=== PATIENT | male | born 1960 | race Caucasian/White ===

== ENCOUNTER 2023-09-07 08:35 | Outpatient (CLI) | payer MEDICARE, BC, SELFPAY | END 2023-09-07 08:36 | disposition home or self-care (01) | LOC: NFLDREF 09-10 07:43 | PROVIDERS: PCP Internal Medicine; Referring Provider Internal Medicine; Visit Provider Internal Medicine | DX: E78.5 Hyperlipidemia, unspecified (principal); I10 Essential (primary) hypertension; L40.50 Arthropathic psoriasis, unspecified; C20 Malignant neoplasm of rectum; G47.00 Insomnia, unspecified; F41.9 Anxiety disorder, unspecified; Z12.5 Encounter for screening for malignant neoplasm of prostate | CPT/HCPCS: 80053; 80061; G0103 ==

== ENCOUNTER 2024-02-16 15:50 | Outpatient (CLI) | payer MEDICARE, BC, SELFPAY ==
--- OUTSIDE RECORDS SUMMARY | 2024-02-16 15:52 | XMS_ITS | Clinical Summary ---
Author Organization [facility] Address [address] [place] [address]. [place] [address] Care Team Providers Care Ice Skating Teacher Name Role Phone Martín Campbell MD Primary Care Provider Allergies No known active allergies Medications losartan (COZAAR) 100 MG tablet Take 50 mg by mouth daily (100MG X 0.5 = 50MG) Active Vitamin D, Cholecalcifero l, 25 MCG (1000 UT) CAPS Take 1,000 Units by mouth every morning Active zolpidem (AMBIEN) 10 MG tablet Take 10 mg by mouth every evening as needed for sleep Active gabapentin (NEURONTIN) 300 MG capsule Take 300 mg by mouth every morning Active LORazepam (ATIVAN) 0.5 MG tablet Take 0.5 mg by mouth 2 times daily as needed for anxiety Active acetaminophen (TYLENOL) 500 MG tablet Take 500 mg by mouth every morning Active Alum Hydroxide-Mag Carbonate (GAVISCON PO) Take 1 Tablespoonful by mouth daily as needed Active Active Problems Problem Noted Date Diagnosed Date Rectal cancer 02/13/2021 Family History Medical History Relation Comments Cancer Father Lung Cancer Father Colon Cancer Other Colon Cancer Paternal Grandfather Relation Status Comments Father Mother Other Paternal Grandfather Social History Tobacco Use Types Packs/Day Years Used Date Smoking Tobacco: Former Cigarettes Q uit: 2004 Smokeless Tobacco: Never Tobacco Cessation:Counseling Given: Not Answered Alcohol Use Standard Drinks/Week Comments Never 0 (1 standard drink = 0.6 oz pur e alcohol) AUDIT-C Answer Date Recorded Q1: How often do you have a drink containing alc ohol? Never 06/22/2020 Average Number of Drinks Not on file 021 Frequency of Binge Drinking Not on file 11/2020 Adolescent Education Answer Date Record ed Getting School Help Needed Not on file 12/06 Sex and Gender Information Value Date Recorded Sex Assigned at Not on file Legal Sex Male 7:14 AM CDT Gender Identity Not on file Sexual Orientation Not on file Last Filed Vital Signs Vital Sign Reading Time Taken Comments Blood Pressure 127/65 02/25/2022 8:30 AM UI SOFTWARE DEVELOPER Pulse 58 02/25/2022 8:10 AM UI SOFTWARE DEVELOPER Temperature 36.3 C (97.3 F) 02/25/2022 7:18 AM UI SOFTWARE DEVELOPER Respiratory Rate 16 02/25/2022 8:30 AM UI SOFTWARE DEVELOPER Oxygen Saturation 98% 02/25/2022 8:30 AM UI SOFTWARE DEVELOPER Inhaled Oxygen Concentration - - Weight 74.4 kg (164 lb) 02/25/2022 7:18 AM UI SOFTWARE DEVELOPER Height 167.6 cm (5' 6) 02/25/2022 7:18 AM UI SOFTWARE DEVELOPER Body Mass Index 26.47 02/25/2022 7:18 AM UI SOFTWARE DEVELOPER Plan of Treatment Health Maintenance Due Date Last Done Comments ANNUAL REVIEW OF HM ORDERS 1960 CT COLONOGRAPHY 1960 FIT 1960 sDNA (Cologuard) 1960 HIV SCREENING 1973 HEPATITIS C SCREENING 1976 LIPID 1998 LUNG CANCER SCREENING 2008 ZOSTER IMMUNIZATION (1 of 2) 2008 COLONOSCOPY 08/26/2022 02/25/2022, 02/25/2022 COLORECTAL CANCER SCREENING 08/26/2022 PHQ-2 (once per calendar year) 2023 FALL RISK ASSESSMENT 10/13/2023 MEDICARE ANNUAL WELLNESS VISIT 10/13/2023 Pneumococcal Vaccine: 65+ Years (1 of 1 - PCV) 10/13/2023 COVID-19 Vaccine (5 - season) 2023 02/03/2022, 12/15/2020, 06/15/2020, Additional history exists INFLUENZA VACCINE (#1) 2023 , 02/06/2021, 01/23/2021, Additional history exists GLUCOSE 06/05/2024 06/05/2021, 05/15, 06/02/2021, Additional history exists ADVANCE CARE PLANNING 02/27/2026 02/27/2021 FLEX SIG 09/10/2026 09/10/2021, 02/10/2021, 04/23/2021, Additional history exists DTAP/TDAP/TD IMMUNIZATION (2 - Td or Tdap) 02/06/2031 02/06/2021, 09/01/2005 RSV VACCINE (1 - 1-dose 75+ series) 2033 HPV IMMUNIZATION Aged Out No longer e ligible based on patient's age to complete this topic MENINGITIS IMMUNIZATION Aged Out No l onger eligible based on patient's age to complete this topic RSV MONOCLONAL ANTIBODY Aged Out No l onger eligible based on patient's age to complete this topic Medical Devices Explanted Type Area Patient Access Manager Device Identifier Shelf Expiration Date Model / Serial / Lot Port-06/26/2020 Implanted:Qty: 1 on 06/26/2020 by Bill Muro MD Explanted:Qty: 1 on 04/09/2021 by Austin Cuadra MD Port Right: Chest Wall 07/13/2021 / / [id number] Procedures Procedure Name Priority Date/Time Associated Diagnosis Comments COLONOSCOPY Routine 02/25/2022 7:20 AM UI SOFTWARE DEVELOPER FLEXIBLE SIGMOIDOSCOPY Routine 10:50 AM CDT GLUCOSE BY METER Routine 06/05/2021 1:53 AM CDT from Last 3 Months or Most Recently Relevant to Health Maintenance Results * COLONOSCOPY (02/25/2022 7:20 AM UI SOFTWARE DEVELOPER) COLONOSCOPY [facility] Patient Name: Husam Moran Procedure Date: 02/25/2022 7:20 AM Date of : 1960 Admit Type: Outpatient Age: 61 Gender: Male Attending MD: RAJAN FLORES MD Total Sedation Time: 15 min, IT 1 min, WT 14 min. Instrument Name: 224 - Adult Colonoscope Procedure: Colonoscopy Indications: High risk colon cancer surveillance: Personal history of rectal cancer - s/p robotic ultra low LAR 02/2021. Providers: RAJAN FLORES MD (Doctor) Referring MD: Medicines: Midazolam 3 mg IV, Fentanyl 100 micrograms IV Complications: No immediate complications. Procedure: Pre-Anesthesia Assessment: - Prior to the procedure, a History and Physical was performed, and patient medications and allergies were reviewed. The patient's tolerance of previous anesthesia was also reviewed. The risks and benefits of the procedure and the sedation options and risks were discussed with the patient. All questions were answered, and informed consent was obtained. Prior Anticoagulants: The patient has taken no anticoagulant or antiplatelet agents. ASA Grade Assessment: II - A patient with mild systemic disease. After reviewing the risks and benefits, the patient was deemed in satisfactory condition to undergo the procedure. - Prior to the procedure, a History and Physical was performed, and patient medications, allergies and sensitivities were reviewed. The patient's tolerance of previous anesthesia was reviewed. - The risks and benefits of the procedure and the sedation options and risks were discussed with the patient. All questions were answered and informed consent was obtained. - Patient identification and proposed procedure were verified prior to the procedure by the physician. The procedure was verified in the endoscopy suite. - Pre-procedure physical examination revealed no contraindications to sedation. - The heart rate, respiratory rate, oxygen saturations, blood pressure, adequacy of pulmonary ventilation, and response to care were monitored throughout the procedure. - The physical status of the patient was re-assessed after the procedure. After obtaining informed consent, the colonoscope was passed under direct vision. Throughout the procedure, the patient's blood pressure, pulse, and oxygen saturations were monitored continuously. The Olympus Adult Colonoscope, Model # CF-AX297C, Endora # 224, SN # [id number] was introduced through the anus and advanced to the terminal ileum. The colonoscopy was performed without difficulty. The patient tolerated the procedure well. The quality of the bowel preparation was adequate. Findings: A post-surgical anastomosis was found on digital exam. ~ 6 cm from the anal verge. This was found to be patent and intact. Pertinent negatives include normal sphincter tone, no palpable rectal lesions and normal prostate (size, shape, and consistency). The terminal ileum appeared normal. Two sessile polyps were found in the transverse colon and ascending colon. The polyps were 4 to 7 mm in size. These polyps were removed with a cold snare. Resection and retrieval were complete. Estimated blood loss was minimal. There was evidence of a prior end-to-end colo-rectal anastomosis in the rectum. This was patent and was characterized by healthy appearing mucosa and an intact staple line. The anastomosis was traversed. Biopsies were taken with a cold forceps for histology. Estimated blood loss was minimal. The exam was otherwise without abnormality. Impression: - Patent and intact post-surgical anastomosis found on digital exam. - The examined portion of the ileum was normal. - Two 4 to 7 mm polyps in the transverse colon and in the ascending colon, removed with a cold snare. Resected and retrieved. - Patent end-to-end colo-rectal anastomosis, characterized by healthy appearing mucosa and an intact staple line. Biopsied. - The examination was otherwise normal. Recommendation: - Discharge patient to home. - Resume previous diet. - Continue present medications. - Await pathology results. - Repeat colonoscopy in 3 years for surveillance. - Perform a flexible sigmoidoscopy for surveillance in 6 months. Procedure Code(s): --- Professional --- 27600, Colonoscopy, flexible; with removal of tumor(s), polyp(s), or other lesion(s) by snare technique 74673, 59, Colonoscopy, flexible; with biopsy, single or multiple CPT copyright 2020 [employer]. All rights reserved. The codes documented in this report are preliminary and upon spring coverer review may be revised to meet current compliance requirements. RAJAN FLORES MD 02/25/2022 7:56:55 AM I was physically present for the entire viewing portion of the exam. RAJAN FLORES MD Number of Addenda: 0 Note Initiated On: 02/25/2022 7:20 AM Procedure Date: 02/25/2022 7:20:55 AM Scope Withdrawal Time: 0 hours 13 minutes 52 seconds Total Procedure Duration: 0 hours 15 minutes 23 seconds Estimated Blood Loss: Scope In: 7:34:19 AM Scope Out: 7:49:42 AM RADIOLOGY RESULTS 02/25/2022 7:20 AM UI SOFTWARE DEVELOPER us Rajan Flores MD PROCEDURES Final Res ult RADIOLOGY RESULTS * FLEXIBLE SIGMOIDOSCOPY (09/10/2021 10:50 AM CDT) Pathologist [facility] Patient Name: Husam Moran Procedure Date: 09/10/2021 10:50 AM Date of : 1960 Admit Type: Outpatient Age: 60 Gender: Male Attending MD: Rajan Flores MD Total Sedation Time: 7 min. Instrument Name: 207- Gastroscope Procedure: Flexible Sigmoidoscopy Indications: High risk colon cancer surveillance: Personal history of rectal cancer Providers: Rajan Flores MD (Doctor) Referring MD: Medicines: Midazolam 2 mg IV, Fentanyl 100 micrograms IV Complications: No immediate complications. Procedure: Pre-Anesthesia Assessment: - Prior to the procedure, a History and Physical was performed, and patient medications and allergies were reviewed. The patient's tolerance of previous anesthesia was also reviewed. The risks and benefits of the procedure and the sedation options and risks were discussed with the patient. All questions were answered, and informed consent was obtained. Prior Anticoagulants: The patient has taken no anticoagulant or antiplatelet agents. ASA Grade Assessment: II - A patient with mild systemic disease. After reviewing the risks and benefits, the patient was deemed in satisfactory condition to undergo the procedure. - Prior to the procedure, a History and Physical was performed, and patient medications, allergies and sensitivities were reviewed. The patient's tolerance of previous anesthesia was reviewed. - The risks and benefits of the procedure and the sedation options and risks were discussed with the patient. All questions were answered and informed consent was obtained. - Patient identification and proposed procedure were verified prior to the procedure by the physician. The procedure was verified in the endoscopy suite. - Pre-procedure physical examination revealed no contraindications to sedation. - The heart rate, respiratory rate, oxygen saturations, blood pressure, adequacy of pulmonary ventilation, and response to care were monitored throughout the procedure. - The physical status of the patient was re-assessed after the procedure. After obtaining informed consent, the scope was passed under direct vision. The Olympus Gastroscope, Model # GIF-H190, Endora # 207, SN # [id number] was introduced through the anus and advanced to the descending colon. The flexible sigmoidoscopy was accomplished without difficulty. The patient tolerated the procedure well. The quality of the bowel preparation was adequate. Findings: A post-surgical anastomosis was found on digital exam. This was found to be patent and intact at the level of the anorectal ring. There was evidence of a prior end-to-end colo-rectal anastomosis in the distal rectum. This was patent and was characterized by friable mucosa and a non-intact appearance. The anastomosis was traversed. Biopsies were taken with a cold forceps for histology. Estimated blood loss was minimal. Impression: - Patent and intact at the level of the anorectal ring post-surgical anastomosis found on digital exam. - Patent end-to-end colo-rectal anastomosis, characterized by friable mucosa and a non-intact appearance. Biopsied. Recommendation: - Discharge patient to home. - Resume previous diet. - No aspirin, ibuprofen, naproxen, or other non-steroidal anti-inflammatory drugs for 5 days after biopsy. - Await pathology results. - Repeat flexible sigmoidoscopy in 1 year for surveillance. Procedure Code(s): --- Professional --- 75959, Sigmoidoscopy, flexible; with biopsy, single or multiple CPT copyright 2020 [employer]. All rights reserved. The codes documented in this report are preliminary and upon spring coverer review may be revised to meet current compliance requirements. Rajan Flores MD 09/10/2021 11:14:55 AM I was physically present for the entire viewing portion of the exam. Rajan Flores MD Number of Addenda: 0 Note Initiated On: 09/10/2021 10:50 AM Procedure Date: 09/10/2021 10:50:06 AM Total Procedure Duration: 0 hours 7 minutes 33 seconds Estimated Blood Loss: Scope In: 10:58:06 AM Scope Out: 11:05:39 AM RADIOLOGY RESULTS 09/10/2021 10:5 0 AM CDT us Rajan Flores MD PROCEDURES Final Res ult RADIOLOGY RESULTS * Glucose by meter (06/05/2021 1:53 AM CDT) GLUCOSE BY METER POCT 97 70 - 99 mg/dL 06/05/2021 2:02 AM CDT LABORATORY POC Blood, Capillary BLOOD SPECIMEN / Unknown 06/05/2021 1:53 AM CDT 06/05/2021 2:02 AM CDT us Rajan Flores MD LAB - BEAKER POCT Final R esult LABORATORY POC [facility] [address], [address] [place] [address], [facility] [phone] from Last 3 Months or Most Recently Relevant to Health Maintenance Insurance [facility] Advance Directives For more information, please contact: [phone] Documents on File Type Date Recorded Patient Safety Compliance Specialist Expl anation Advance Directives and Living Will 02/27/2021 Health Care Directiv e 05/31/2003 * Full Code (Latest Code Status on File) Date Activated Date Inactivated Comments 05/31/2021 2:37 PM 06/05/2021 1:59 PM All basic an d advanced life-sustaining interventions are performed as appropriate Question Answer Comments Code status determined by: Discussion with jasiel nt/ legal decision maker * Full Code Date Activated Date Inactivated Comments 02/13/2021 5:10 PM 02/18/2021 4:42 PM All basic an d advanced life-sustaining interventions are performed as appropriate Question Answer Comments Code status determined by: Discussion with brandone nt/ legal decision maker Healthcare Agents on File Name Relationship Healthcare Agent Relationsde p Communication Belinda Moran Spouse Health Care Agent Gavin Moran Brother First Alternate Health Care Agent Care Teams Ice Skating Teacher Relationship Specialty Start Date End Date Martín Campbell MD [address] [address] PCP - General Emergency Medicine 04/09/21
--- OUTSIDE RECORDS SUMMARY | 2024-02-16 15:53 | XMS_ITS | Encounter Summary ---
Author Organization [facility] Address [address] [place] [address]. [place] [address] Care Team Providers Care Marble Supervisor Name Role Phone Martín Campbell MD Primary Care Provider Encounter Details Date Type Department Care Team (Late st Contact Info) Description 09/02/2021 Orders Only [facility] Centralized Scheduling [address] [place] [id number] Maged Zapata MD [address] [place], [place] [id number] Encounter for laboratory testing for COVID-19 virus Social History Tobacco Use Types Packs/Day Years Used Date Smoking Tobacco: Former Cigarettes Q uit: 2003 Smokeless Tobacco: Never Alcohol Use Standard Drinks/Week Comments Never 0 (1 standard drink = 0.6 oz pur e alcohol) AUDIT-C Answer Date Recorded Q1: How often do you have a drink containing alc ohol? Never 06/22/2020 Average Number of Drinks Not on file 021 Frequency of Binge Drinking Not on file 11/2020 Sex and Gender Information Value Date Recorded Sex Assigned at Not on file Legal Sex Male 7:14 AM CDT Gender Identity Not on file Sexual Orientation Not on file documented as of this encounter Plan of Treatment Not on file documented as of this encounter Visit Diagnoses Diagnosis Encounter for laboratory testing for COVID-19 virus documented in this encounter Care Teams Marble Supervisor Relationship Specialty Start Date End Date Martín Campbell MD [facility] [address] [place] [address] PCP - General Emergency Medicine 04/09/21 documented as of this encounter
--- OUTSIDE RECORDS SUMMARY | 2024-02-16 15:53 | XMS_ITS ---
Author Organization [facility] Address [address] [place] [address]. [place] [address] Care Team Providers Care Photoengraving Photographer Name Role Phone Martín Campbell MD Primary Care Provider Active Problems Problem Noted Date Diagnosed Date Rectal cancer 02/13/2021 Current Oncology Plans No current plan information found. Past Plans No past plan information found. Radiation Treatments * No radiation treatments are documented for this patient in [facility]. Treatments may have been administered in another system. Lifetime Dose Tracking * Chemical Lifetime Dose Automatic Entry Manual Entr y DLP 2 mGy*cm 2 mGy*cm 0 mGy*cm
--- OUTSIDE RECORDS SUMMARY | 2024-02-16 15:53 | XMS_ITS | Clinical Summary ---
Author Organization [facility] Address [place], [place] [address] Care Team Providers Care Ceiling Installer Name Role Phone Martín Campbell MD Primary Care Provider + [phone] Allergies No known active allergies Medications Medication Sig Dispensed Refills Start Date End Date Status zolpidem (AMBIEN) 10 mg tablet TAKE 1 TABLET BY MOUTH ONCE FOR INSOMNIA DIRECTED 09/28/2021 Active LORazepam (ATIVAN) 0.5 mg tab Take 0.5 mg by mouth. 07/17/2020 Active gabapentin (NEURONTIN) 300 mg capsule Take 300 mg by mouth in the morning and 300 mg in the evening. Active cholecalciferol (VITAMIN D3) 1,000 unit capsule Take 1,000 units by mouth. 10/17/2020 Active tadalafiL (CIALIS) 5 mg tablet TAKE 1 TABLET BY MOUTH 30 MINUTES TO 36 HOURS PRIOR TO INTERCOURSE 05/07/2022 Active losartan (COZAAR) 50 mg tablet Take 50 mg by mouth once daily. 05/07/2022 Active metoprolol succinate (TOPROL XL) 50 mg sustained-release tabletIndications:C oronary artery disease due to calcified coronary lesion Take 1 Tablet (50 mg) by mouth once daily. 30 Tablet 11 11/12/2023 Active atorvastatin (LIPITOR) 20 mg tabletIndications:C oronary artery disease due to calcified coronary lesion Take 1 Tablet (20 mg) by mouth once daily. 30 Tablet 11 11/12/2023 Active Additional Information Patient not taking.Reported on 11/26/2023 Active Problems Problem Noted Date Diagnosed Date Congenital patent ductus arteriosus aneurysm Encounters Date Type Department Care Team Description 12/03/2023 Telephone [facility] [address] [place] [address] Jim Busch MD Referral 12/01/2023 Telephone [facility] [place] [address] [place] [address] Alexa Vasquez, PT Physical Therapy 11/26/2023 1:30 PM CDT Office Visit [facility] [address] [place] [address] Rinku Kent MD Consult 11/26/2023 Travel 11/19/2023 Telephone [facility] [address] [place] [address] Jim Busch MD Appointment Request from Last 3 Months Family History Medical History Relation Name Comments Lymphoma Brother Lung cancer Father Cancer-colon Other uncle Relation Name Status Comments Brother Father Other uncle Social History Tobacco Use Types Packs/Day Years Used Date Smoking Tobacco: Never Passive Smoke Exposure: Never Smokeless Tobacco: Never Tobacco Cessation:Counseling Given: Not Answered Social Connections Answer Date Recorded Frequency of Communication with Friends and Fami ly Not on file 11/12/2023 Financial Resource Strain Answer Date R ecorded Difficulty of Paying Living Expenses Not on file 03/16/2021 Difficulty of Paying Living Expenses Not on file 03/16/2021 Sex and Gender Information Value Date Recorded Sex Assigned at Not on file Gender Identity Not on file Sexual Orientation Not on file Obstetrics History Last Filed Vital Signs Vital Sign Reading Time Taken Comments Blood Pressure 133/76 11/26/2023 1:30 PM CDT Pulse 61 11/26/2023 1:30 PM CDT Temperature 36.7 C (98 F) 10/08/2022 11:21 AM CDT Respiratory Rate - - Oxygen Saturation 98% 10/08/2022 11: 21 AM CDT Inhaled Oxygen Concentration - - Weight 78.4 kg (172 lb 12.8 oz) 11/26/2023 1:30 PM CDT Height - - Body Mass Index - - Plan of Treatment Health Maintenance Due Date Last Done Comments Tdap 1969 Depression screening for age 12+ 1970 HIV for age 15-65 1973 BMI (ht and wt on same day) for age 18+ 1976 Hepatitis C screening for ag e 18-79 1976 Tetanus booster 1978 Colonoscopy through age 75 10/13/2003 Lipids for age 45-75 10/13/2003 Zoster (shingles) series for age 50+ (1 of 2) 2008 Pneumococcal series for age 65+ (1 of 1 - PCV) 10/13/2023 COVID-19 vaccine series (2023-25 season) 2023 12/31/2022, 12/15/2020, 06/15/2020, Additional history exists Influenza for age 65+ 11/15/2023 Insurance Payer Benefit Plan / Group Subscriber ID Effective Dates Phone Address Type MEDICARE PART A - HB USE ONLY MEDICARE PART A HB ONLY [id number] 2023-Prese nt ATTN: CLAIMS [address] [place] [address] MEDICARE PART B - HB USE ONLY MEDICARE PART B HB ONLY [id number] 2023-Prese nt ATTN: CLAIMS [address] [place] [address] MEDICARE - PB USE ONLY MEDICARE PB ONLY [id number] 2023-Prese nt ATTN: CLAIMS [address] [place] [address] [facility] [id number] 2023-Prese nt [address] [place] [address] Care Teams Ceiling Installer Relationship Specialty Start Date End Date Martín Campbell MD [address] [place] [address] PCP - General Internal Medicine 08/23/21
--- OUTSIDE RECORDS SUMMARY | 2024-02-16 15:53 | XMS_ITS | Referral Summary ---
Author Organization [facility] Address [address] [place] [address]. [place] [address] Care Team Providers Care Bleach Machine Operator Name Role Phone Martín Campbell MD Primary [...] Noted Date Diagnosed Date Rectal cancer 02/13/2021 Social History Tobacco Use Types Packs/Day Years [...] Frequency of Binge Drinking Not on file 040 11/2020 Adolescent Education Answer Date Record ed Getting School Help Needed Not on file 12/06 Sex and Gender Information Value Date Recorded Sex Assigned at Not on file Legal Sex Male 7:14 AM CDT Gender Identity Not on file Sexual Orientation Not on file Last Filed Vital Signs Vital Sign Reading Time Taken Comments Blood Pressure 127/65 02/25/2022 8:30 AM EXPENSE ANALYST Pulse 58 02/25/2022 8:10 AM EXPENSE ANALYST Temperature 36.3 C (97.3 F) 02/25/2022 7:18 AM EXPENSE ANALYST Respiratory Rate 16 02/25/2022 8:30 AM EXPENSE ANALYST Oxygen Saturation 98% 02/25/2022 8:30 AM EXPENSE ANALYST Inhaled Oxygen Concentration - - Weight 74.4 kg (164 lb) 02/25/2022 7:18 AM EXPENSE ANALYST Height 167.6 cm (5' 6) 02/25/2022 7:18 AM EXPENSE ANALYST Body Mass Index 26.47 02/25/2022 7:18 AM EXPENSE ANALYST Plan of Treatment Not on file Medical Devices Explanted Type Area Plant Supervisor Device Identifier Shelf Expiration Date Model / Serial / Lot Port-06/26/2020 Implanted:Qty: 1 on 06/26/2020 by Bill Muro MD Explanted:Qty: 1 on 04/09/2021 by Austin Cuadra MD Port Right: Chest Wall 07/13/2021 / / [id number] Procedures Procedure Name Priority Date/Time Associated Diagnosis Comments COLONOSCOPY Routine 02/25/2022 7:20 AM EXPENSE ANALYST FLEXIBLE SIGMOIDOSCOPY Routine 10:50 AM CDT GLUCOSE BY METER Routine 06/05/2021 1:53 AM CDT from Last 3 Months or Most Recently Relevant to Health Maintenance Results * COLONOSCOPY (02/25/2022 7:20 AM EXPENSE ANALYST) COLONOSCOPY [facility] Patient Name: Husam Moran Procedure Date: [...] continuously. The Olympus Adult Colonoscope, Model # [id number], Endora # [id number], SN # [id number] was introduced through the anus and advanced [...] 6 months. Procedure Code(s): --- Professional --- 22985, Colonoscopy, flexible; with removal of tumor(s), polyp(s), or other lesion(s) by snare technique 17362, 59, Colonoscopy, flexible; with biopsy, single or multiple CPT copyright 2020 [employer]. All rights reserved. The codes documented in this report are preliminary and upon vamp strap ironer review may be revised to meet current [...] 7:49:42 AM RADIOLOGY RESULTS 02/25/2022 7:20 AM EXPENSE ANALYST us Rajan Flores MD PROCEDURES Final Res ult RADIOLOGY RESULTS * FLEXIBLE SIGMOIDOSCOPY (09/10/2021 10:50 AM CDT) [facility] Patient Name: Husam HaiderElizabeth Moran Procedure Date: 09/10/2021 10:50 AM Date [...] # [id number], Endora # 207, SN # [id number] was introduced through the anus and advanced [...] for surveillance. Procedure Code(s): --- Professional --- 24299, Sigmoidoscopy, flexible; with biopsy, single or multiple CPT copyright 2020 [employer]. All rights reserved. The codes documented in this report are preliminary and upon vamp strap ironer review may be revised to meet current [...] BEAKER POCT Final R esult LABORATORY POC [facility] [address], [address] [place] [address], [facility] [phone] from Last 3 Months or Most Recently Relevant to Health Maintenance Insurance [facility] Advance Directives For more information, please contact: [phone] Documents on File Type Date Recorded Patient Grind Operator Expl anation Advance Directives and Living Will 02/27/2021 Health Care Directiv e 05/31/2003 * Full Code (Latest Code Status on File) Date Activated Date Inactivated Comments 05/31/2021 2:37 PM 06/05/2021 1:59 PM All basic an d advanced life-sustaining interventions are performed as appropriate Question Answer Comments Code status determined by: Discussion with patie nt/ legal decision maker * Full Code Date Activated Date Inactivated Comments 02/13/2021 5:10 PM 02/18/2021 4:42 PM All basic an d advanced life-sustaining interventions are performed as appropriate Question Answer Comments Code status determined by: Discussion with patie nt/ legal decision maker Healthcare Agents on File Name Relationship Healthcare Agent Relationshi p Communication Belinda Moran Spouse Health Care Agent Gavin Moran Brother First Alternate Health Care Agent Care Teams Bleach Machine Operator Relationship Specialty Start Date End Date Martín Campbell MD [facility] [place] [address] [place] [address] PCP - General Emergency Medicine 04/09/21
== END 2024-02-16 15:51 | disposition home or self-care (01) ==
LOC: NFLDREF 15:50
PROVIDERS: PCP Internal Medicine; Visit Provider Internal Medicine
DX: Z12.5 Encounter for screening for malignant neoplasm of prostate (principal)
CPT/HCPCS: G0103

== ENCOUNTER 2024-08-26 08:35 | Outpatient (CLI) | payer MEDICARE, BC, SELFPAY | END 2024-08-26 08:36 | disposition home or self-care (01) | PROVIDERS: PCP Internal Medicine; Referring Provider Internal Medicine; Visit Provider Internal Medicine | DX: E78.5 Hyperlipidemia, unspecified (principal); I10 Essential (primary) hypertension | CPT/HCPCS: 80053; 80061; G0103 ==